=== PATIENT | female | born 1995 | race Caucasian/White ===

== ENCOUNTER 2017-09-22 16:38 | Emergency (ER) | payer SELFPAY ==
[~2017-09-22] VITALS: Ht 172.7 cm; Wt 55.0 kg
[2017-09-22 16:43] VITALS: BP 112/78
== END 2017-09-23 | disposition left against medical advice (07) ==
LOC: ER 20:57
DX: Z53.21 Procedure and treatment not carried out due to patient leaving prior to being seen by health care provider (principal)